=== PATIENT | female | born 1935 | race Caucasian/White ===

== ENCOUNTER 2025-06-17 09:50 | Outpatient (CLI) | payer MEDICARE | END 2025-06-17 09:51 | disposition home or self-care (01) | LOC: RAD 09:50 | PROVIDERS: ATTEND Family Medicine | DX: R13.12 Dysphagia, oropharyngeal phase (principal); R63.30 Feeding difficulties, unspecified; K21.9 Gastro-esophageal reflux disease without esophagitis | CPT/HCPCS: 74230 ==